=== PATIENT | male | born 1985 | race Caucasian/White ===

== ENCOUNTER → 2020-07-20 12:25 | Outpatient (REF) | payer BC, SELFPAY | LOC: ANHLAB 12:25 | PROVIDERS: PCP Family Medicine; Visit Provider Nurse Practitioner | DX: L72.0 Epidermal cyst (principal) | CPT/HCPCS: 88304 ==

== ENCOUNTER 2020-11-10 08:51 | Outpatient (CLI) | payer BC, SELFPAY ==
--- NOTE | ~2020-11-10 | XR_ITS ---
EXAMINATION: XR UGIAC w small bowel EXAM DATE: 11/10/2020 10:45 INDICATION: Epigastric pain, indigestion. TECHNIQUE: Classification Counselor radiograph was acquired. Standard single and double contrast barium upper GI examina tion was performed followed by small bowel series. Spot images of the terminal ileum were acquired. Pulsed dose reduction fluoroscopy was used with fluoroscopic time of 0.6 minutes. A total of 100 olimpia ges obtained for the exam. The DAP for this procedure was 21.4 Gycm2. Comparison is made to prior ex amination from 08/21/2013. FINDINGS: There is no esophageal stricture, diverticulum or mass identified. Gastroesophageal juncti on is normal in appearance. Reflux was not demonstrated during this examination. The stomach has a normal appearance without evidence of mass lesion, ulceration or filling defect. T here is normal rugal fold pattern. The duodenum and duodenal sweep are normal in appearance. Ileal and jejunal fold patterns are normal. There is no small bowel wall thickening or mass effect d isplacing small bowel. There are no intraluminal filling defects identified. There is no small isma l dilation. Terminal ileum is normal in appearance. Contrast reached the colon by 1.25 hours, regis l transit time. IMPRESSION: Normal exam. Reviewed, dictated and finalized at location A. IMPRESSION: Normal exam.
== END 2020-11-10 08:52 | disposition home or self-care (01) ==
PROVIDERS: PCP Physician Assistant; Visit Provider Physician Assistant
DX: R10.13 Epigastric pain (principal)
CPT/HCPCS: 74246; 74248